=== PATIENT | female | born 1980 | race Two or more races ===

== ENCOUNTER → 2017-10-28 | Outpatient (CLI) | payer OTHER | LOC: M LRY 16:38 | PROVIDERS: ATTEND Nurse Practitioner Family | DX: R05 Cough (principal) ==

== ENCOUNTER → 2019-02-23 | Outpatient (REF) | payer OTHER ==
[2019-02-23 19:47] LABS: INFLUENZA A AMPLIFICATION POSITIVE (NEGATIVE); INFLUENZA B AMPLIFICATION NEGATIVE (NEGATIVE)
== END ==
LOC: M LAB REF 10:51
PROVIDERS: ATTEND Nurse Practitioner Family
DX: J11.1 Influenza due to unidentified influenza virus with other respiratory manifestations (principal)

== ENCOUNTER → 2019-03-20 | Outpatient (CLI) | payer OTHER ==
[2019-03-22 10:17] LABS: RUBELLA IgG QUALITATIVE IMMUNE (IMMUNE)
== END ==
LOC: M LAB 18:57
PROVIDERS: ATTEND Family Medicine
DX: Z13.89 Encounter for screening for other disorder (principal)

== ENCOUNTER → 2019-08-07 | Outpatient (CLI) | payer OTHER ==
[~2019-08-07] MED LIST: EFFE37.5 PO; EFFE75CA2 PO; VENL75CA47
[2019-08-07 18:34] LABS: BASO % 0.5 % (0.0-1.0); EOS # 0.4 10^3/uL (0.0-0.5); EOS % 5.6 % (0.0-3.0); HEMATOCRIT 38.5 % (36.0-47.0); HEMOGLOBIN 13.1 g/dl (12.0-15.5); LYMPH # 2.4 10^3/uL (1.5-5.0); LYMPH % 30.8 % (24.0-44.0); MEAN CORPUSCULAR HEMOGLOBIN 31.5 pg (27.0-33.0); MEAN CORPUSCULAR VOLUME 92.5 fl (80.0-96.0); MONO # 0.7 10^3/uL (0.0-0.8); NEUTROPHILS # 4.1 10^3/uL (1.5-8.5); NEUTROPHILS % 53.8 % (36.0-66.0); PLATELET COUNT, AUTOMATED 251 10^3/uL (150-450); RED BLOOD COUNT 4.16 10^6/uL (4.00-5.40); WHITE BLOOD COUNT 7.6 10^3/uL (4.0-10.0)
[2019-08-07 19:13] LABS: ALBUMIN 4.2 GM/DL (3.2-5.2); ALT/SGPT 42 U/L (12-78); BILIRUBIN,TOTAL 0.2 MG/DL (0.2-1.0); BLOOD UREA NITROGEN 11 MG/DL (7-18); CALCIUM LEVEL 8.8 MG/DL (8.5-10.1); CARBON DIOXIDE LEVEL 26 MEQ/L (21-32); CHLORIDE LEVEL 111 MEQ/L (98-107); CREATININE FOR GFR 0.74 MG/DL (0.55-1.30); FERRITIN 54 NG/ML (8-252); FOLATE > 24.0 NG/ML; FREE T4 0.78 NG/DL (0.76-1.46); GLOMERULAR FILTRATION RATE > 60.0 (>60); GLUCOSE, FASTING 91 MG/DL (70-100); IRON (FE) 63 UG/DL (50-170); POTASSIUM SERUM 3.9 MEQ/L (3.5-5.1); SODIUM LEVEL 144 MEQ/L (136-145); TOTAL IRON BINDING CAPACITY 287 UG/DL (250-450); TOTAL PROTEIN 7.1 GM/DL (6.4-8.2); VITAMIN B12 LEVEL 1466 PG/ML
[2019-08-13 00:14] LABS: ANA (HEP2) Negative (.); VITAMIN D 1,25 DIHYDROXY 40.2 pg/mL (19.9-79.3)
== END ==
LOC: M LAB 16:49
PROVIDERS: ATTEND Physician Assistant
DX: R53.83 Other fatigue (principal)

== ENCOUNTER 2019-08-09 20:53 | Emergency (ER) | payer OTHER ==
[2019-08-09] MEDS ORDERED: VENL75CA47 (21:28)
[2019-08-09 21:34] VITALS: BP 134/91
[2019-08-09] MEDS ORDERED: EFFE37.5 PO (21:44)
[2019-08-09] MEDS ORDERED: EFFE75CA2 PO (21:44)
== END 2019-08-09 21:53 | disposition home or self-care (01) ==
LOC: EEVIPCON 20:53 → M ED 20:53
DX: Z76.0 Encounter for issue of repeat prescription (principal); Z90.710 Acquired absence of both cervix and uterus; Z79.899 Other long term (current) drug therapy; Z91.013 Allergy to seafood; Z88.6 Allergy status to analgesic agent; Z88.1 Allergy status to other antibiotic agents; Z88.8 Allergy status to other drugs, medicaments and biological substances

== ENCOUNTER 2020-01-28 12:53 | Emergency (ER) | payer OTHER ==
[~2020-01-28] VITALS: Ht 162.6 cm; Wt 61.8 kg
[2020-01-28] MEDS ORDERED: ERYTHROMYCIN OPHTH OINT OS ONE (13:00)
[2020-01-28] MEDS ORDERED: FLUORESCEIN OPHTH 1 MG STRIP OS ONE (13:00)
[2020-01-28] MEDS ORDERED: ERYTOIN8 OS (13:29)
[2020-01-28 13:30] VITALS: BP 115/60
== END 2020-01-28 13:36 | disposition home or self-care (01) ==
LOC: M ED 12:53
DX: S05.02XA Injury of conjunctiva and corneal abrasion without foreign body, left eye, initial encounter (principal); X58.XXXA Exposure to other specified factors, initial encounter; Y99.0 Civilian activity done for income or pay; Z88.6 Allergy status to analgesic agent; Z88.8 Allergy status to other drugs, medicaments and biological substances; Z91.013 Allergy to seafood; Z79.899 Other long term (current) drug therapy

== ENCOUNTER → 2020-06-29 | Outpatient (REF) ==
[~2020-06-29] MED LIST changes: +ERYTOIN8 OS
== END ==
LOC: M EMP 13:30
PROVIDERS: ATTEND Family Medicine
DX: Z02.89 Encounter for other administrative examinations (principal)

== ENCOUNTER → 2020-07-28 | Outpatient (CLI) | payer OTHER | LOC: M LABSMTC 12:32 | PROVIDERS: ATTEND Pediatrics | DX: Z20.828 Contact with and (suspected) exposure to other viral communicable diseases (principal) | CPT/HCPCS: C9803; U0002 ==